=== PATIENT | female | born 1940 | race Caucasian/White ===

== ENCOUNTER → 2016-12-28 | Outpatient (CLI) | payer OTHER ==
[~2016-12-28] MED LIST: EVISTA60 MG PO; LIPITOR PO; SINGULAIR PO; SPIRIVA18 MCG INH; [UNRECOGNIZED DRUG - OTHER] INH
--- NOTE | ~2016-12-28 | CT57 ---
[facility] A Service of [facility] RADIOLOGY TEXT RESULTS PATIENT: SARAH JOYA LOCATION: [facility] : 44 UNIT #: [id number] AGE: [address]: Soumya Pro SEX: F ORDER DR: [id number] [facility] [address] [place], [place] [address] [id number] O MR#: [id number] Acc #: [id number] NAME: SARAH JOYA : 1940 SEX: F STUDY DATE/TIME: 12/28/2016 8:46 UNIT: [facility] ROOM: STUDY DESCRIPTION: CT Chest Wo Cont Attending Physician: Soumya Pro A.P.R.N. Referring Physician: Soumya Pro A.P.R.N. Ordering Physician: Soumya Pro A.P.R.N. Primary Care Physician: Zac Marie M.D. MEDICAL IMAGING REPORT This report is preliminary unless electronic signature is present EXAM CT chest without contrast. INDICATIONS Follow up pulmonary nodule. Chronic smoking history. PROCEDURE Unenhanced CT of the chest. This CT exam was performed with one or more of the following radiation dose reduction techniques: automatic exposure control, adjustment of mA and/or kV according to patient size, and iterative reconstruction. COMPARISON 06/25/2016 FINDINGS Significant emphysema. Previously demonstrated nodular densities in the left lower lobe have resolved. There is some new peripheral opacity and clustered nodularity in the lingula. No pleural fluid or pneumothorax. No adenopathy. Coronary artery calcifications. No acute findings in the included upper abdomen. No aggressive- appearing bone lesion. IMPRESSION 1. Significant emphysema. 2. Previously demonstrated clustered nodules in the left lower lobe have resolved. 3. Some new linear plaque opacity and clustered nodularity in the lingula favored to represent infectious or inflammatory change. 4. There is no new dense consolidation. Dictated by... Rodri Perez M.D. [facility] A Service of [facility] RADIOLOGY TEXT RESULTS PATIENT: SARAH JOYA LOCATION: [facility] : 44 UNIT #: [id number] AGE: [address]: Soumya Pro SEX: F ORDER DR: THIS IS AN ELECTRONICALLY VERIFIED REPORT Rodri Perez M.D. at 12/29/2016 8:26 AM Halina TD: 12/28/2016 19:09 JOB #: [id number] MEDICAL IMAGING REPORT Page 1 of 1 COPY
== END | disposition home or self-care (01) ==
LOC: CCAT 07:59
DX: R91.1 Solitary pulmonary nodule (principal); J43.9 Emphysema, unspecified; R91.8 Other nonspecific abnormal finding of lung field
CPT/HCPCS: 71250

== ENCOUNTER → 2017-01-11 | Outpatient (CLI) | payer OTHER ==
--- NOTE | ~2017-01-11 | MY29 ---
[facility] A Service of [facility] RADIOLOGY TEXT RESULTS PATIENT: SARAH JOYA LOCATION: [facility] : 44 UNIT #: [id number] AGE: [address]: Arianne Marie MD SEX: F ORDER DR: [id number] [facility] [address] [place], [place] [address] [id number] O MR#: [id number] Acc #: [id number] NAME: SARAH JOYA : 1940 SEX: F STUDY DATE/TIME: 01/11/2017 8:09 UNIT: [facility] ROOM: STUDY DESCRIPTION: MY [facility] SCREENING W/ FANNY BILJEMMA Attending Physician: Zac Marie M.D. Ordering Physician: Zac Marie M.D. Primary Care Physician: Zac Marie M.D. MEDICAL IMAGING REPORT This report is preliminary unless electronic signature is present EXAM Digital screening mammogram, 01/11/2017, [facility]. HISTORY 76-year-old woman positive family history, aunt. Annual screen. COMPARISON Mammograms date to 04/24/2008 with most recent 06/04/2011. Followup right breast diagnostic evaluation 07/06/2011, 10/07/2011. TECHNIQUE Digital imaging of each breast was completed utilizing screening protocol. Review includes FDA-approved CAD device. FINDINGS Breast parenchyma is fatty replaced. Small opacity inner hemisphere right breast anterior third is no longer identified. There is no mass. I see no suspicious microcalcifications and no architectural deformity. IMPRESSION Negative mammogram. Annual screening recommended. Patients over the age of 40 are entered into a reminder system with target due date for the next mammogram. A result letter will also be sent to the patient. BIRADS: 1 Negative Dictated by... Hi Poole M.D. [facility] A Service [facility] RADIOLOGY TEXT RESULTS PATIENT: SARAH JOYA LOCATION: [facility] : 44 UNIT #: [id number] AGE: [address]: Arianne Marie MD SEX: F ORDER DR: THIS IS AN ELECTRONICALLY VERIFIED REPORT Hi Poole M.D. at 01/11/2017 2:19 PM VIRIDIANA/kalin TD: 01/11/2017 09:14 JOB #: [id number] MEDICAL IMAGING REPORT Page 1 of 1 COPY
== END | disposition home or self-care (01) ==
LOC: CWCC 07:39
DX: Z12.31 Encounter for screening mammogram for malignant neoplasm of breast (principal); Z80.3 Family history of malignant neoplasm of breast
CPT/HCPCS: G0202